=== PATIENT | female | born 1965 | race Caucasian/White ===

== ENCOUNTER 2017-07-20 16:56 | Emergency (ER) | payer MEDICAID ==
[~2017-07-20] VITALS: Ht 157.5 cm; Wt 64.4 kg
[2017-07-20 17:07] VITALS: BP 160/112; Ht 157.5 cm; Wt 64.4 kg
== END 2017-07-20 18:05 | disposition left against medical advice (07) ==
LOC: ED 16:56
DX: M25.511 Pain in right shoulder (principal); F32.9 Major depressive disorder, single episode, unspecified; F17.210 Nicotine dependence, cigarettes, uncomplicated; Z72.89 Other problems related to lifestyle